=== PATIENT | female | born 1980 | race Caucasian/White ===

== ENCOUNTER 2023-10-19 08:22 | Outpatient (CLI) | payer OTHER ==
[2023-10-19] MEDS ORDERED: iohexol 300mg/ml 100ml inj. ONE (09:04)
== END 2023-10-19 23:59 | disposition home or self-care (01) ==
LOC: RAD 08:22
PROVIDERS: ATTEND Obstetrics & Gynecology
DX: K76.0 Fatty (change of) liver, not elsewhere classified (principal); R16.0 Hepatomegaly, not elsewhere classified; J98.11 Atelectasis; R19.09 Other intra-abdominal and pelvic swelling, mass and lump
CPT/HCPCS: 74177; J3490; Q9967